=== PATIENT | female | born 1990 | race Caucasian/White ===

== ENCOUNTER 2019-03-29 23:17 | Emergency (ER) | payer OTHER ==
[~2019-03-29] VITALS: Ht 160 cm; Wt 53.8 kg
[2019-03-30 01:06] VITALS: BP 133/67
== END 2019-03-30 01:06 | disposition home or self-care (01) ==
LOC: ER 23:17
DX: S13.9XXA Sprain of joints and ligaments of unspecified parts of neck, initial encounter (principal); V89.2XXA Person injured in unspecified motor-vehicle accident, traffic, initial encounter; Y93.I9 Activity, other involving external motion; Y92.410 Unspecified street and highway as the place of occurrence of the external cause; Y99.8 Other external cause status